=== PATIENT | male | born 1965 | race Caucasian/White ===

== ENCOUNTER 2017-07-25 15:07 | Inpatient (IN) | payer OTHER ==
[2017-07-25] MEDS ORDERED: NS 1,000 ML IV ONE (15:13)
--- NOTE | 2017-07-25 15:13 | EDPHY ---
H & P Time Seen by Provider: 07/25/17 15:13 HPI/ROS: CHIEF COMPLAINT: Intractable vomiting, constipation and increasing pain since spinal surgery HISTORY OF PRESENT ILLNESS: The patient presents to the ED with intractable vomiting, constipation increasing pain since braga L3 spinal surgery performed as an outpatient on Saturday. The patient denies any acute numbness or weakness in his legs. The patient does report 8/10 pain. The patient reports multiple episodes of vomiting and associated constipation. He has been using Valium as well as oral narcotics for management of his symptoms. The patient denies significant past medical history aside from hypertension. Past surgical history is significant only for cholecystectomy. REVIEW OF SYSTEMS: A comprehensive 10 point review of systems is otherwise negative aside from elements mentioned in the history of present illness. Source: Patient Exam Limitations: No limitations - Medical/Surgical History PMH: Past medical history: Hypertension - Family History Significant Family History: No pertinent family hx - Social History Smoking Status: Never smoked - Physical Exam Exam: General Appearance: Alert, mild discomfort secondary to pain Eyes: Pupils equal and round no pallor or injection ENT, Mouth: Mucous membranes moist Respiratory: There are no retractions, lungs are clear to auscultation Cardiovascular: Regular rate and rhythm Gastrointestinal: Abdomen is soft and nontender, no masses, bowel sounds normal Neurological: Alert and oriented x4, 5/5 strength noted bilateral extremities Skin: Incisional dressing is dry, minimal erythematous changes which appear to be consistent with a normal postsurgical state Musculoskeletal: Neck is supple nontender Extremities: symmetrical, full range of motion Constitutional: Initial Vital Signs Temperature (C) 37.5 C 07/25/17 15:11 Heart Rate 88 07/25/17 15:11 Respiratory Rate 18 07/25/17 15:11 Blood Pressure 128/86 H 07/25/17 15:11 O2 Sat (%) 92 07/25/17 15:11 O2 Delivery Mode Room Air Allergies/Adverse Reactions: Penicillins Allergy (Verified 07/25/17 15:17) Home Medications: Medication Instructions Recorded Cephalexin [Keflex (*)] 500 mg PO Q6H 07/25/17 Diazepam [Valium 5 MG (*)] 5 mg PO Q8 PRN 07/25/17 Methocarbamol [Robaxin 750 mg (*)] 750 mg PO QID PRN 07/25/17 Olmesartan Medoxomil [Benicar 20 20 mg PO DAILY 10/05/17 mg (*)] morphINE SR [Ms Contin/Oramorph 15 30 mg PO BID 07/25/17 mg (*)] oxyCODONE IR [Oxycodone Ir (*)] 5 - 10 mg PO Q4 PRN 07/25/17 Medical Decision Making ED Course/Re-evaluation: The patient presents to the ED secondary to intractable nausea, vomiting, pain and dehydration in the setting of recent outpatient spine surgery. The patient had an IV established. He received a L of normal saline. He received IV Zofran. He received IV narcotic medication. Consultation was made with his regular neurosurgeon who has requested the patient be admitted to the hospital for symptomatic treatment. The patient will be admitted under the care of Dr. Srinivasa Rivas. The patient was seen by the neurosurgical physician marketing assistant retail division in the emergency department prior to his transfer to the floor. Differential Diagnosis: Differential diagnosis considered includes dehydration, metabolic abnormality, postoperative hematoma - Data Points Laboratory Results: Laboratory Results 07/25/17 15:45 07/25/17 15:45 07/25/17 07/25/17 15:45 15:45 WBC 13.73 10^3/uL H 10^3/uL (3.80-9.50) RBC 4.64 10^6/uL 10^6/uL (4.40-6.38) Hgb 13.9 g/dL g/dL (13.7-17.5) Hct 40.6 % % (40.0-51.0) MCV 87.5 fL fL (81.5-99.8) MCH 30.0 pg pg (27.9-34.1) MCHC 34.2 g/dL g/dL (32.4-36.7) RDW 13.3 % % (11.5-15.2) Plt Count 208 10^3/uL 10^3/uL (150-400) MPV 9.0 fL fL (8.7-11.7) Neut % (Auto) 74.9 % H % (39.3-74.2) Lymph % (Auto) 13.3 % L % (15.0-45.0) [place] % (Auto) 9.0 % % (4.5-13.0) Eos % (Auto) 1.2 % % (0.6-7.6) Baso % (Auto) 0.4 % % (0.3-1.7) Nucleat RBC Rel Count 0.2 % % (0.0-0.2) Absolute Neuts (auto) 10.28 10^3/uL H 10^3/uL (1.70-6.50) Absolute Lymphs (auto) 1.82 10^3/uL 10^3/uL (1.00-3.00) Absolute Monos (auto) 1.23 10^3/uL H 10^3/uL (0.30-0.80) Absolute Eos (auto) 0.17 10^3/uL 10^3/uL (0.03-0.40) Absolute Basos (auto) 0.06 10^3/uL 10^3/uL (0.02-0.10) Absolute Nucleated RBC 0.03 10^3/uL H 10^3/uL (0-0.01) Immature Gran % 1.2 % H % (0.0-1.1) Immature Gran # 0.17 10^3/uL H 10^3/uL (0.00-0.10) Sodium 137 mEq/L mEq/L (134-144) Potassium 4.5 mEq/L mEq/L (3.5-5.2) Chloride 98 mEq/L mEq/L (97-110) Carbon Dioxide 28 mEq/l mEq/l (22-31) Anion Gap 11 mEq/L mEq/L (8-16) BUN 15 mg/dL mg/dL (7-23) Creatinine 1.0 mg/dL mg/dL (0.7-1.3) Estimated GFR > 60 Glucose 130 mg/dL H mg/dL (70-100) Calcium 9.4 mg/dL mg/dL (8.5-10.4) Medications Given: Potassium Chloride/Sodium Chloride (Ns W/ 20 Kcl/L) 1,000 mls @ 100 mls/hr IV CONT MCKENZIE Stop: 01/21/18 16:29 Last Admin: 07/25/17 18:11 Dose: 1,000 mls Ondansetron HCl (Zofran) 4 mg IVP Q4HRS PRN PRN Reason: Nausea/Vomiting, Can't Take PO Stop: 04/03/18 16:26 Last Admin: 07/25/17 16:45 Dose: 4 mg Discontinued Medications Sodium Chloride (Ns) 1,000 mls @ 0 mls/hr IV EDNOW ONE; Wide Open PRN Reason: Protocol Stop: 07/25/17 15:14 Last Admin: 07/25/17 15:49 Dose: 1,000 mls Departure - Departure Disposition: [facility] In[facility] Acute Clinical Impression: Postoperative pain, Dehydration Condition: Fair
[2017-07-25 15:59] LABS: % IMMATURE GRANULYOCYTES 1.2 % (0.0-1.1); ABSOLUTE IMMATURE GRANULOCYTES 0.17 10^3/uL (0.00-0.10); ABSOLUTE NRBC COUNT 0.03 10^3/uL (0-0.01); ADD DIFF? NO; ADD MORPH? NO; ADD SCAN? NO; ATYPICAL LYMPHOCYTE FLAG 0 (0-99); FRAGMENT RBC FLAG 0 (0-99); HEMATOCRIT 40.6 % (40.0-51.0); HEMOGLOBIN 13.9 g/dL (13.7-17.5); LEFT SHIFT FLG 10 (0-99); LIPEMIA HEMOLYSIS FLAG 90 (0-99); MEAN CELL HEMOGLOBIN CONCENTR. 34.2 g/dL (32.4-36.7); MEAN CELL VOLUME 87.5 fL (81.5-99.8); NRBC-AUTO% 0.2 % (0.0-0.2); PLATELET CLUMPS FLAG 0 (0-99); PLATELET COUNT 208 10^3/uL (150-400); RED BLOOD CELL COUNT 4.64 10^6/uL (4.40-6.38); RED CELL DISTRIBUTION WIDTH 13.3 % (11.5-15.2)
[2017-07-25 16:09] LABS: ANION GAP 11 mEq/L (8-16); CALCIUM 9.4 mg/dL (8.5-10.4); CARBON DIOXIDE 28 mEq/l (22-31); CHLORIDE 98 mEq/L (97-110); GLOMERULAR FILTRATION RATE > 60; GLUCOSE 130 mg/dL (70-100); POTASSIUM 4.5 mEq/L (3.5-5.2); SODIUM 137 mEq/L (134-144)
[2017-07-25] MEDS ORDERED: ACETAMINOPHEN 325 MG TAB PO PRN (16:27)
[2017-07-25] MEDS ORDERED: ONDANSETRON DISINTEGRATING 4 MG TAB PO PRN (16:27)
[2017-07-25] MEDS ORDERED: NS W/ 20 KCl/L 1,000 ML IV SCH (16:30)
[2017-07-25] MEDS ORDERED: METHOCARBAMOL 750 MG TAB PO PRN (16:31)
[2017-07-25] MEDS: ONDANSETRON 4 MG/2 ML VIAL IVP PRN (16:45)
--- NOTE | 2017-07-25 19:02 | GHP ---
[f rep st] PREOP HISTORY AND PHYSICAL DATE OF ADMISSION: 07/25/2017 CHIEF COMPLAINT: Nausea, vomiting. HISTORY OF PRESENT ILLNESS: The patient is a 51-year-old male, who on July 22, 2017, had an L4-5 t ransforaminal lumbar interbody fusion at the [facility]. He did have an inci dental durotomy during that procedure, but was discharged home on postoperative day #1. While at [facility], over the last 36 hours, he has developed nausea and vomiting. His states that he has only ur inated once yesterday and barely anything today. He has also been constipated postoperatively. He h as not had any fevers, but he did have some chills. He denies any weakness or paresthesias. PAST MEDICAL HISTORY: Hypertension. CURRENT MEDICATIONS: Benicar. ALLERGIES: Penicillin. FAMILY HISTORY: Patient has no family history of cancers or spinal problems. SOCIAL HISTORY: Patient is and is employed. He drinks alcohol socially, but denies smoking or drug use. REVIEW OF SYSTEMS: Negative. PHYSICAL EXAM: GENERAL APPEARANCE: Patient is a 51-year-old male lying in bed, in a mild amount of distress. HEAD, EYES, EARS, NOSE, AND THROAT: Negative to drainage. EXTREMITIES: [place], warm, and dry. NEUROLOGICAL: Patient is awake, alert, oriented x4. Pupils are equal, round, reactive to ligh t. Extraocular motions are intact. There is no evidence of facial droop. Tongue and uvula are midl ine. Spinal accessory muscles are intact. His motor strength is 5 out of 5 in all muscle groups in the arms and legs. Sensation is grossly intact to light touch in his arms and legs. Deep tendon ref lexes are 1 out of 4 throughout. His incision is clean, dry, and intact. SEROLOGICAL STUDIES: A CBC from 07/25/2017, has a white blood cell count of 13.7, hemoglobin 13.9, p latelet count 2 8. Basic metabolic panel is sodium 139, potassium 4.5, chloride 98, CO2 28, BUN 15, creatinine 1.1. The random glucose is 138. His T-max is 37.7. IMPRESSION: This is a 51-year-old male, status post an L4-5 transforaminal lumbar interbody fusion, who was admitted with postoperative nausea, vomiting, dehydration. PLAN: All the above discussed in detail with the patient and his . The patient was seen and exa mined by Dr. Héctor Rivas. At this point, he will be admitted to the hospital for observation , with overnight IV fluids and hydration. He will be placed on a bowel protocol, as well. He will h ave SCDs, TEDs, and Lovenox for DVT prophylaxis. Will evaluate his progress to make further recommen dations after rehydration. /[id number]/MODL
[2017-07-25] MEDS: morphINE SR 15 MG TAB PO SCH (20:41)
[2017-07-25] MEDS ORDERED: CEPHALEXIN 500 MG CAP PO SCH (21:00)
[2017-07-25] MEDS: PROMETHAZINE HCL 25 MG/ML INJ IVP PRN (21:19)
[2017-07-25] MEDS ORDERED: PROPOFOL 200 MG/20 ML VIAL ONE (21:28)
[2017-07-25] MEDS ORDERED: fentaNYL 100 MCG/2 ML INJ ONE (21:29)
[2017-07-25] MEDS ORDERED: LIDOCAINE 2% 5 ML SDV ONE (21:30)
[2017-07-25] MEDS ORDERED: ROCURONIUM 50 MG/5 ML VIAL ONE (21:30)
[2017-07-25] MEDS ORDERED: BUPIVACAINE 0.25% 30 ML SDV ONE ×2 (21:35→21:36)
[2017-07-25] MEDS ORDERED: CHLORHEXIDINE GLUC HIBICLENS 118 ML BTL TP ONE (21:36)
[2017-07-25] MEDS ORDERED: THROMBIN (BOVINE) 5,000 UNIT VIAL TP ONE (21:36)
[2017-07-25] MEDS ORDERED: AVITENE POWDER 1 GM JAR TP ONE (21:37)
--- NOTE | 2017-07-25 21:42 | PDANEPAE ---
ANE History of Present Illness 51 year old male w/ PMHx of HTN & obesity s/p lumbar TLIF earlier this week presents with nausea, vomiting and dehydration. Plan for dural repair. ANE Past Medical History - Cardiovascular History Hx Hypertension: Yes Hx Arrhythmias: No Hx Chest Pain: No Hx Coronary Artery / Peripheral Vascular Disease: No Hx CHF / Valvular Disease: No Hx Palpitations: No - Pulmonary History Hx COPD: No Hx Asthma/Reactive Airway Disease: No Hx Recent Upper Respiratory Infection: No Hx Oxygen in Use at Home: No Hx Sleep Apnea: No Sleep Apnea Screening Result - Last Documented: Positive - Endocrine History Hx Diabetes: No Hypothyroid: No Hyperthyroid: No Obesity: yes, mild - Renal History Hx Renal Disorders: No - Liver History Hx Hepatic Disorders: No - Neurological & Psychiatric Hx Hx Neurological and Psychiatric Disorders: No - Cancer History Hx Cancer: No - Congenital Disorder History Hx Congenital Disorders: No - GI History GERD: mild Hx Gastrointestinal Disorders: No - Chronic Pain History Chronic Pain: Yes - Surgical History Prior Surgeries: Lumbar TLIF on 07/22/2017 ANE Review of Systems Review of Systems: - Exercise capacity Exercise capacity: >=4 METS ANE Patient History - Allergies Allergies/Adverse Reactions: Penicillins Allergy (Verified 07/25/17 15:17) - Home Medications Home medications: home medication list seen and reviewed Home Medications: Cephalexin [Keflex (*)] 500 mg PO Q6H 07/25/17 [Last Taken 07/25/17 07:00] Diazepam [Valium 5 MG (*)] 5 mg PO Q8 PRN 07/25/17 [Last Taken 07/25/17 05:30] Methocarbamol [Robaxin 750 mg (*)] 750 mg PO QID PRN 07/25/17 [Last Taken ] Olmesartan Medoxomil [Benicar 20 mg (*)] 20 mg PO DAILY 07/25/17 [Last Taken 03/06] morphINE SR [Ms Contin/Oramorph 15 mg (*)] 30 mg PO BID 07/25/17 [Last Taken 03/06 05:30] oxyCODONE IR [Oxycodone Ir (*)] 5 - 10 mg PO Q4 PRN 07/25/17 [Last Taken 07:00] - NPO status NPO Status: no food or drink >8 hours NPO Since - Liquids (Date): 07/24/17 NPO Since - Liquids (Time): 00:00 NPO Since - Solids (Date): 07/24/17 NPO Since - Solids (Time): 00:00 - Anes Hx Anes Hx: no prior problems - Smoking Hx Smoking Status: Never smoked Marijuana use: No - Alcohol Use Alcohol Use: Occasionally - Family Anes Hx Family Anes Hx: neg - N/A ANE Labs/Vital Signs - Labs Result Diagrams: 07/25/17 15:45 07/25/17 15:45 - Vital Signs Vital Signs: reviewed preoperatively; see RN documention for details Blood Pressure: 154/89 Heart Rate: 85 Respiratory Rate: 18 O2 Sat (%): 96 Height: 177.8 cm Weight: 113.398 kg ANE Physical Exam - Airway Neck exam: FROM Mallampati Score: Class 2 Mouth exam: normal dental/mouth exam - Pulmonary Pulmonary: no respiratory distress - Cardiovascular Cardiovascular: regular rate and rhythym - ASA Status ASA Status: II ANE Anesthesia Plan Anesthesia Plan: general endotracheal anesthesia Total IV Anesthesia: No
[2017-07-25] MEDS ORDERED: BACITRACIN 50,000 UNITS/10 ML SYR IRR ONE (21:46)
[2017-07-25] MEDS ORDERED: CEFAZOLIN 2 GM/DEXTROSE/100 ML BAG IV ONE (22:10)
[2017-07-25] MEDS: ceFAZolin 2 GM/DEXTROSE 100 ML IV ONE (22:25)
[2017-07-25] MEDS ORDERED: DEXAMETHASONE 4 MG/ML VIAL ONE (23:00)
[2017-07-25] MEDS ORDERED: ONDANSETRON 4 MG/2 ML VIAL ONE (23:16)
[2017-07-25] MEDS ORDERED: HYDROmorphONE/DILAUDID 1 MG/ML INJ IVP PRN (23:38)
[2017-07-25] MEDS ORDERED: NALOXONE HCL 0.4 MG/ML INJ IVP PRN (23:38)
[2017-07-25] MEDS ORDERED: fentaNYL 100 MCG/2 ML INJ IVP PRN (23:38)
[2017-07-25] MEDS ORDERED: LR 500 ML IV PRN (23:38)
[2017-07-25] MEDS ORDERED: ONDANSETRON 4 MG/2 ML VIAL IVP PRN (23:38)
[2017-07-25] MEDS ORDERED: BACITRACIN ZINC 14.2 GM OINTTUBE TP ONE (23:54)
--- NOTE | 2017-07-26 00:23 | GPROG ---
[f rep st] PROGRESS NOTE The patient was seen and examined. His vital signs are stable. He is moving his lower extremities w ell. The dressing is clean and dry. The lumbar drain is draining well. The patient will be transfe rred to the intensive care unit for close observation and drainage of CSF at 10-20 cc/hour. /[id number]/MODL
--- NOTE | 2017-07-26 00:33 | GOP ---
[f rep st] OPERATIVE REPORT DATE OF OPERATION: 07/25/2017 SURGEON: Srinivasa Rivas MD NEUROSURGEON: Srinivasa Rivas MD. ROSS LIFT OPERATOR: None. ANESTHESIA: General endotracheal. PREOPERATIVE DIAGNOSIS: Possible lumbar cerebral spinal fluid leak. POSTOPERATIVE DIAGNOSIS: Possible lumbar cerebral spinal fluid leak. PROCEDURE PERFORMED: 1. Exploration of lumbar wound for extension of laminectomy defect and evaluation of cerebrospinal f luid leak. 2. Placement of lumbar drain for therapeutic drainage of cerebral spinal fluid. FINDINGS: ESTIMATED BLOOD LOSS: Trace. INDICATIONS: The patient is a 51-year-old man who recently underwent a lumbar decompression and fusi on complicated by a CSF leak, who woke up earlier this morning with nausea and vomiting when he sat u p which has gone on all day and it is positional and he presents now for exploration and placement of a lumbar drain. DESCRIPTION OF PROCEDURE: After informed consent was obtained, the patient was taken to the operatin g room and placed in the prone position on the Jaime table. The thoracolumbosacral areas were prep ped and draped in a sterile fashion and a Tuohy needle was placed just immediately above the prior in cision and down to the spine. This was buried to the hub and in multiple angles, and no CSF flow was identified. The needle was then removed and the prior incision opened and carried down to the dural layer. After incising the prior sutures in the fascia and subcutaneous tissues, a Versa Trac retrac tor was placed and the prior dural repair was identified and noted to not be leaking. I felt that ba sed on the patient's symptoms he very likely leaked when he sat up, but did not leak when he was flat such as in the surgical position. Therefore, I reinforced the patch with Gelfoam soaked in blood an d left the DuraGen in place. The fascia was then closed using interrupted Vicryl sutures. The incis ion was extended very slightly rostrally and the Tuohy needle was placed through the fascia into the approximately L2-3 interspace and good CSF flow was obtained. The catheter was then threaded through the needle and out the skin through a separate area and connected to a Huynh drainage system where good flow was observed. The wound was then closed in a layered fashion using interrupted Vicryl sutu res followed by nylon on the skin. COMPLICATIONS: None. DISPOSITION: The patient is currently in the process being repositioned for extubation. /[id number]/MODL
--- NOTE | 2017-07-26 00:53 | POSTANESTH ---
Post Anesthetic Evaluation Cardiovascular Status: Normal, Stable, Similar to Pre-Op Cond Respiratory Status: Normal, Stable, Similar to Pre-op Cond. Level of Consciousness/Mental Status: Can Participate in Eval, Alert and Oriented Pain Control: Adequate, Prn Tx Ordered Nausea/Vomiting Control: Adequate, Prn Tx Ordered Complications Possibly Related to Anesthesia: None Noted
[2017-07-26] MEDS: ceFAZolin 2 GM/DEXTROSE 100 ML IV ONE (00:59)
[2017-07-26] MEDS: POTASSIUM Cl (KCl) 20 MEQ in D5W NS 1,000 ML IV SCH ×2 (02:05→22:31)
[2017-07-26] MEDS: oxyCODONE IR 5 MG TAB PO PRN (02:24)
[2017-07-26] MEDS: DIAZEPAM 5 MG TAB PO PRN ×2 (02:24→22:31)
[2017-07-26] MEDS ORDERED: POTASSIUM Cl (KCl) 20 MEQ in D5W NS 1,000 ML IV SCH (06:30)
--- NOTE | 2017-07-26 07:34 | SOAPPROG ---
SOAP Progress Note Assessment/Plan: Assessment: 51 yo M POD #1 exploration and repair of csf leak with lumbar drian placement, L4/5 TLIF on 07/22/17 Plan: neuro: stable, keep lumbar drain open to drain with 10-20 ml per hour hob flat with bedrest scd/reina/lovenox for dvt prophylaxis an ancef until lumbar drain removed please call with neuro changes discussed with Dr Hunt 07/26/17 07:32 Subjective: mild headache this am, " I feel much better today." No N/V. no leg pain. Objective: Vital Signs Temp Pulse Resp BP Pulse Ox 36.8 C 75 17 132/72 H 95 07/26/17 05:00 07/26/17 06:00 07/26/17 06:00 07/26/17 06:00 07/26/17 06:00 07/25/17 07/26/17 07/27/17 05:59 05:59 05:59 Intake Total 795 200 Output Total 1234 18 Balance -439 182 AAOx4, +FC PERRL, no facial droop 5/5 + light touch C/D/I ICD10 Worksheet Patient Problems: Problems Problem Status Onset Dehydration Acute Postoperative pain Acute
[2017-07-26] MEDS: POLYETHYLENE GLYCOL 3350 17 GM PKT PO SCH (08:11)
[2017-07-26] MEDS: morphINE SR 15 MG TAB PO SCH ×2 (08:11→20:28)
[2017-07-26] MEDS: ENOXAPARIN 40 MG/0.4 ML SYR SC SCH (08:14)
--- NOTE | 2017-07-26 10:44 | GCON ---
[f rep st] CONSULTATION INFORMATION RECEPTIONIST CONSULTATION HISTORY OF PRESENT ILLNESS: The patient is postop L4-L5 transforaminal lumbar interbody fusion. The patient is a 51-year-old white male with a past medical history of hypertension. On July 22, he underwent a L4-L5 trans[facility]aminal lumbar [facility] fusion [facility] . He presented with increasing nausea and vomiting, as well as constipation. In discussion with e patient, he states he feels somewhat better. He is having to lie flat and is somewhat uncomfortabl e. He denies any chest pain, pleuritic-type chest pain or angina equivalent. No fever or night swea ts. Currently, he is resting comfortably. PAST MEDICAL HISTORY: Significant for hypertension. ALLERGIES: Penicillin. SOCIAL HISTORY: No history of tobacco use. Infrequent alcohol use. He is and employed. He is originally from [place]. PHYSICAL EXAM: VITAL SIGNS: Blood pressure is 144/80, pulse 73, respiration 18, temperature 36.7, o xygen saturation 96% on 2 L. GENERAL: He is a mildly overweight, but very pleasant, 51-year-old, wh ite male, who is resting comfortably, in no acute distress. HEENT: Eyes are PERRLA, EOMI. Throat s hows no erythema or tonsillar hypertrophy. NECK: Supple. No cervical adenopathy. HEART: Regular rate and rhythm without murmurs, rubs, gallops. LUNGS: Clear to auscultation. No wheeze or rhonchi . ABDOMEN: Soft, nontender. Bowel sounds are present in all 4 quadrants. EXTREMITIES: No clubbin g, cyanosis, or edema. LABORATORIES: White count 13.7, hemoglobin 13, hematocrit 40, platelet count 208. Sodium 137, potas sium 4.5, chloride 98, CO2 28, BUN 15, creatinine 1, glucose is 130. IMPRESSION: 1. Status post transforaminal lumbar interbody fusion. 2. Immediately postop after receiving an exploration repair of CSF leak with lumbar drain. 3. Hypertension. RECOMMENDATIONS: 1. Adequate pain control. 2. Deep vein thrombosis and pulmonary embolus prophylaxis. 3. Stress ulcer prophylaxis. 4. The patient to remain flat and lumbar drain open. /[id number]/MODL
--- NOTE | 2017-07-26 10:59 | ASMTCMCOM ---
CM Note CM Note Notes: Chart reviewed. Rounds on patient done with staff. Lumbar drain in place. Needs TBD. Date Signed: 07/26/2017 10:58 AM Electronically Signed By:Karoline Talavera RN
[2017-07-26] MEDS: OLMESARTAN MEDOXOMIL 20 MG TAB PO SCH (12:22)
[2017-07-27] MEDS: POTASSIUM Cl (KCl) 20 MEQ in D5W NS 1,000 ML IV SCH ×2 (08:03→18:51)
--- NOTE | 2017-07-27 08:04 | SOAPPROG ---
SOAP Progress Note Assessment/Plan: Assessment: 51 yo male who underwent an L4/5 TLIF on 07/22. Readmitted with CSF leak, dehydration. taken to OR on 07/26 for repair of CSF leak and placment of Lumbar Drain Doing well Plan: Continue Lumbar drain titrating 10-20 ml/hr HOB flat x 5 days (until 07/31) He is on Lovenox and Ancef Discussed with Dr. Mcclure 07/27/17 08:01 Subjective: lying in bed, HOB flat. He is tolerating LD ok. Pain well controlled. Denies numbness or tingling Objective: Vital Signs Temp Pulse Resp BP Pulse Ox 36.9 C 61 16 112/68 92 07/27/17 00:00 07/27/17 07:00 07/27/17 07:00 07/27/17 07:00 07/27/17 07:00 07/26/17 07/27/17 07/28/17 05:59 05:59 05:59 Intake Total 795 2203 5 Output Total 1234 1870 27 Balance -071 190 7005 Neuro: PASCUAL, sens +LT 5/5 strength throughout LD functioning well slight shadowing of yellowish CSF at LD dressing site ICD10 Worksheet Patient Problems: Problems Problem Status Onset Dehydration Acute Postoperative pain Acute
[2017-07-27] MEDS: DIAZEPAM 5 MG TAB PO PRN (08:34)
[2017-07-27] MEDS: POLYETHYLENE GLYCOL 3350 17 GM PKT PO SCH (08:35)
[2017-07-27] MEDS: ENOXAPARIN 40 MG/0.4 ML SYR SC SCH (08:35)
[2017-07-27] MEDS: morphINE SR 15 MG TAB PO SCH ×2 (08:35→21:08)
[2017-07-27] MEDS: OLMESARTAN MEDOXOMIL 20 MG TAB PO SCH (09:01)
--- NOTE | 2017-07-27 11:58 | PDINTPN ---
Grocery Clerk Progress Note Assessment/Plan: Assessment: * Status post L4-L5 transforaminal lumbar interbody fusion * The dural tear * Status post lumbar drain * Pain well controlled Plan: Continue present care Patient to lie flat for several more days Subjective: Resting comfortably. Pain is controlled. No current complaints. Objective: Vital Signs Temp Pulse Resp BP Pulse Ox 36.6 C 57 L 16 126/67 H 93 07/27/17 09:00 07/27/17 11:00 07/27/17 11:00 07/27/17 11:00 07/27/17 11:00 07/26/17 07/27/17 07/28/17 05:59 05:59 05:59 Intake Total 795 2203 5 Output Total 1234 1870 93 Balance -424 693 0980 Physical Exam - Physical Exam General Appearance: WD/WN, alert, no apparent distress EENT: PERRL/EOMI Neck: non-tender, full range of motion, supple, normal inspection Respiratory: chest non-tender, lungs clear, normal breath sounds Cardiac/Chest: normal peripheral pulses, regular rate, rhythm Peripheral Pulses: 2+: carotid (R), carotid (L), femoral (R), femoral (L), dorsalis-pedis (R), dorsalis-pedis (L) Abdomen: normal bowel sounds, non-tender, soft Male Genitalia: deferred Rectal: deferred Skin: normal color, warm/dry Extremities: normal range of motion, non-tender, normal inspection, normal capillary refill Neuro/Psych: no motor/sensory deficits, alert, normal mood/affect, oriented x 3 ICD10 Worksheet Patient Problems: Problems Problem Status Onset Dehydration Acute Postoperative pain Acute
[2017-07-27] MEDS: ONDANSETRON 4 MG/2 ML VIAL IVP PRN (13:03)
[2017-07-27] MEDS: oxyCODONE IR 5 MG TAB PO PRN (13:07)
[2017-07-27] MEDS: diphenhydrAMINE 25 MG CAP PO PRN (13:07)
[2017-07-28] MEDS: POLYETHYLENE GLYCOL 3350 17 GM PKT PO SCH (09:04)
[2017-07-28] MEDS: ENOXAPARIN 40 MG/0.4 ML SYR SC SCH (09:04)
[2017-07-28] MEDS: morphINE SR 15 MG TAB PO SCH ×2 (09:04→21:04)
[2017-07-28] MEDS: OLMESARTAN MEDOXOMIL 20 MG TAB PO SCH (09:04)
--- NOTE | 2017-07-28 09:37 | PDINTPN ---
Drilling Manager Progress Note Assessment/Plan: Assessment: * Status post L4-L5 transforaminal lumbar interbody fusion * The dural tear * Status post lumbar drain * Pain well controlled Plan: Continue present care Patient to lie flat for several more days Continue minimal sedation Subjective: Resting comfortably. No complaints. Objective: Vital Signs Temp Pulse Resp BP Pulse Ox 36.8 C 73 13 153/85 H 90 L 07/28/17 08:00 07/28/17 08:00 07/28/17 08:00 07/28/17 08:00 07/28/17 08:00 07/27/17 07/28/17 07/29/17 05:59 05:59 05:59 Intake Total 2203 3866 Output Total 1876 9980 36 Balance 333 -694 -36 Physical Exam - Physical Exam General Appearance: alert, no apparent distress EENT: PERRL/EOMI, normal ENT inspection, pharynx normal, TMs normal Neck: non-tender, full range of motion, supple, normal inspection Respiratory: chest non-tender, lungs clear Cardiac/Chest: normal peripheral pulses, regular rate, rhythm Peripheral Pulses: 2+: carotid (R), carotid (L), femoral (R), femoral (L), dorsalis-pedis (R), dorsalis-pedis (L) Abdomen: normal bowel sounds, non-tender, soft Male Genitalia: deferred Rectal: deferred Skin: normal color, warm/dry Extremities: normal range of motion, non-tender, normal inspection, normal capillary refill Neuro/Psych: no motor/sensory deficits, alert, normal mood/affect, oriented x 3 ICD10 Worksheet Patient Problems: Problems Problem Status Onset Dehydration Acute Postoperative pain Acute
--- NOTE | 2017-07-28 10:56 | SOAPPROG ---
SOAP Progress Note Assessment/Plan: Assessment: 51 yo male who underwent an L4/5 TLIF on 07/22. Readmitted with CSF leak, dehydration. taken to OR on 07/26 for repair of CSF leak and placment of Lumbar Drain Doing well Plan: Continue Lumbar drain titrating 10-20 ml/hr HOB flat x 5 days (until 07/31) He is on Lovenox and Ancef Discussed with Dr. Mcclure will get cbc and chem today. 07/27/17 08:01 07/28/17 10:55 Objective: Vital Signs Temp Pulse Resp BP Pulse Ox 36.8 C 61 10 L 138/80 H 93 07/28/17 08:00 07/28/17 09:00 07/28/17 09:00 07/28/17 09:00 07/28/17 09:00 07/27/17 07/28/17 07/29/17 05:59 05:59 05:59 Intake Total 2203 3866 Output Total 1870 4560 91 Balance 333 -694 -91 ICD10 Worksheet Patient Problems: Problems Problem Status Onset Dehydration Acute Postoperative pain Acute
[2017-07-28 11:30] LABS: HEMATOCRIT 24.2 % (40.0-51.0); HEMOGLOBIN 8.1 g/dL (13.7-17.5); MEAN CELL HEMOGLOBIN 29.7 pg (27.9-34.1); MEAN CELL HEMOGLOBIN CONCENTR. 33.5 g/dL (32.4-36.7); MEAN CELL VOLUME 88.6 fL (81.5-99.8); RED BLOOD CELL COUNT 2.73 10^6/uL (4.40-6.38); RED CELL DISTRIBUTION WIDTH 13.5 % (11.5-15.2)
[2017-07-28 11:58] LABS: ANION GAP 11 mEq/L (8-16); CALCIUM 8.8 mg/dL (8.5-10.4); CARBON DIOXIDE 24 mEq/l (22-31); CHLORIDE 104 mEq/L (97-110); CREATININE 0.8 mg/dL (0.7-1.3); GLOMERULAR FILTRATION RATE > 60; GLUCOSE 92 mg/dL (70-100); POTASSIUM 3.8 mEq/L (3.5-5.2); SODIUM 139 mEq/L (134-144)
[2017-07-28] MEDS: POTASSIUM Cl (KCl) 20 MEQ in D5W NS 1,000 ML IV SCH (14:28)
[2017-07-28] MEDS: diphenhydrAMINE 25 MG CAP PO PRN ×2 (17:55→21:04)
--- NOTE | 2017-07-29 08:08 | SOAPPROG ---
SOAP Progress Note Assessment/Plan: Assessment: 51 yo M POD #4 exploration and repair of csf leak with lumbar drian placement, L4/5 TLIF on 07/22/17 Plan: neuro: stable, keep lumbar drain open to drain with 10-20 ml per hour hob flat with bedrest scd/reina/lovenox for dvt prophylaxis changed dressing this am an ancef until lumbar drain removed please call with neuro changes discussed with Dr Hunt 07/26/17 07:32 07/29/17 08:07 Subjective: no headaches, minimal back pain, no leg pain or weakness. Objective: Vital Signs Temp Pulse Resp BP Pulse Ox 37.3 C 72 18 118/65 89 L 07/29/17 04:00 07/29/17 06:00 07/29/17 06:00 07/29/17 06:00 07/29/17 04:00 Laboratory Results 07/28/17 11:20 07/28/17 11:20 07/28/17 07/29/17 07/30/17 05:59 05:59 05:59 Intake Total 3866 2430 Output Total 2355 6501 Balance -694 -1947 AAOx4, +FC PERRL, EOMI, no facial droop 5/5 + light touch C/D/I ICD10 Worksheet Patient Problems: Problems Problem Status Onset Dehydration Acute Postoperative pain Acute
[2017-07-29] MEDS: POTASSIUM Cl (KCl) 20 MEQ in D5W NS 1,000 ML IV SCH (08:24)
[2017-07-29] MEDS: POLYETHYLENE GLYCOL 3350 17 GM PKT PO SCH ×3 (08:24→23:14)
[2017-07-29] MEDS: morphINE SR 15 MG TAB PO SCH ×2 (08:24→21:32)
[2017-07-29] MEDS: OLMESARTAN MEDOXOMIL 20 MG TAB PO SCH (08:24)
[2017-07-29] MEDS: ENOXAPARIN 40 MG/0.4 ML SYR SC SCH (08:25)
[2017-07-29] MEDS ORDERED: MAGNESIUM HYDROXIDE 30 ML UDCUP PO PRN (13:24)
[2017-07-29] MEDS ORDERED: BISACODYL 10 MG SUPP PR PRN (13:24)
--- NOTE | 2017-07-29 15:55 | ASMTCMCOM ---
CM Note CM Note Notes: Patient in ICU, has a CSF leak after a recent L3-4 fusion. needs to lay flat until Saturday, then therapies will be ordered for discharge needs. Date Signed: 07/29/2017 03:55 PM Electronically Signed By:Tracy Alvarez LCSW
--- NOTE | 2017-07-29 17:07 | PDINTPN ---
[employer] Progress Note Assessment/Plan: Assessment: * Status post L4-L5 transforaminal lumbar interbody fusion * Dural tear * Status post lumbar drain * Vomiting x1 * Constipation: No BM for 8 days. Not feeling constipated. Poor PO intake. On MS Contin. Plan: Add bowel stimulant, fiber. Patient to lie flat until Saturday Continue MS Contin Plan: 07/29/17 17:13 Subjective: Had vomiting after taking MOM. Not feeling nauseated otherwise. No BM for 8 days , but not feeling constipated. Denies pain. Objective: Vital Signs Temp Pulse Resp BP Pulse Ox 36.9 C 65 14 133/65 H 98 07/29/17 12:00 07/29/17 12:00 07/29/17 12:00 07/29/17 12:00 07/29/17 12:00 Laboratory Results 07/28/17 11:20 07/28/17 11:20 07/28/17 07/29/17 07/30/17 05:59 05:59 05:59 Intake Total 3866 2430 Output Total 5442 4377 359 [facility] -694 -1947 -359 Physical Exam - Physical Exam General Appearance: alert, no apparent distress EENT: normal ENT inspection Neck: normal inspection Respiratory: lungs clear, normal breath sounds Cardiac/Chest: regular rate, rhythm, No edema Abdomen: normal bowel sounds, non-tender, soft Skin: normal color, warm/dry Extremities: normal inspection Neuro/Psych: alert, normal mood/affect, oriented x 3 ICD10 Worksheet Patient Problems: Problems Problem Status Onset Dehydration Acute Postoperative pain Acute
[2017-07-29] MEDS: SENNOSIDES/DOCUSATE SODIUM TAB PO SCH (21:32)
[2017-07-29] MEDS: PSYLLIUM METAMUCIL 1 PKT PO SCH (21:33)
[2017-07-30] MEDS: ONDANSETRON 4 MG/2 ML VIAL IVP PRN (06:46)
[2017-07-30] MEDS: PROMETHAZINE HCL 25 MG/ML INJ IVP PRN (07:43)
--- NOTE | 2017-07-30 07:51 | SOAPPROG ---
SOAP Progress Note Assessment/Plan: Assessment: 51 yo male who underwent an L4/5 TLIF on 07/22. Readmitted with CSF leak, dehydration. taken to OR on 07/25 for repair of CSF leak and placment of Lumbar Drain N/V today No BM since 07/23, pt states he is passing gas and RN reports + bowel sounds Plan: Continue Lumbar drain titrating 10-20 ml/hr HOB flat x 5 days (until 08/01) He is on Lovenox and Ancef try suppository today. Discussed with Dr. Graves 07/30/17 07:50 07/31/17 07:56 Subjective: lying in bed, vomiting. Feels nauseated. Has not had BM since 07/23. Denies numbness, tingling, weakness Objective: Vital Signs Temp Pulse Resp BP Pulse Ox 36.7 C 65 18 137/69 H 91 L 07/30/17 07:44 07/30/17 07:44 07/30/17 07:44 07/30/17 07:44 07/30/17 07:44 Laboratory Results 07/28/17 11:20 07/28/17 11:20 07/29/17 07/30/17 07/31/17 05:59 05:59 05:59 Intake Total 2430 2480 Output Total 5167 3522 19 Balance -1947 -1042 -19 Neuro: PASCUAL, sens +LT Incision: CDI LD: draining 10-20 ml/hr abdomen: soft, non-tender ICD10 Worksheet Patient Problems: Problems Problem Status Onset Dehydration Acute Postoperative pain Acute
[2017-07-30] MEDS: ENOXAPARIN 40 MG/0.4 ML SYR SC SCH (08:50)
[2017-07-30] MEDS: SENNOSIDES/DOCUSATE SODIUM TAB PO SCH ×2 (08:51→20:51)
[2017-07-30] MEDS: morphINE SR 15 MG TAB PO SCH ×2 (08:51→20:51)
[2017-07-30] MEDS: OLMESARTAN MEDOXOMIL 20 MG TAB PO SCH (08:51)
[2017-07-30] MEDS: POLYETHYLENE GLYCOL 3350 17 GM PKT PO SCH ×3 (08:51→20:51)
[2017-07-30] MEDS: PSYLLIUM METAMUCIL 1 PKT PO SCH (08:52)
--- NOTE | 2017-07-30 15:45 | PDINTPN ---
[employer] Progress Note Assessment/Plan: Assessment: * Status post L4-L5 transforaminal lumbar interbody fusion * Dural tear * Status post lumbar drain * Vomiting x1 this morning. No longer has nausea. Able to eat a small amount. * Constipation: No BM for 9 days. Not feeling constipated. Poor PO intake. On MS Contin. Plan: Continue bowel stimulant, fiber. Encourage PO Patient to lie flat until tomorrow Continue MS Contin Plan: 07/30/17 15:44 Subjective: Feels OK, had a MIRANDA this morning and an episode of N/V, now resolved. No BM, doesn't feel constipated. Objective: Vital Signs Temp Pulse Resp BP Pulse Ox 36.7 C 78 12 133/72 H 92 07/30/17 14:00 07/30/17 14:00 07/30/17 14:00 07/30/17 14:00 07/30/17 14:00 Laboratory Results 07/28/17 11:20 07/28/17 11:20 07/29/17 07/30/17 07/31/17 05:59 05:59 05:59 Intake Total 2430 2480 Output Total 4377 3522 136 [facility] -1947 -1042 -136 Physical Exam - Physical Exam General Appearance: alert, no apparent distress Neck: normal inspection Respiratory: lungs clear, normal breath sounds Cardiac/Chest: regular rate, rhythm, No edema Abdomen: normal bowel sounds, non-tender, soft Skin: normal color, warm/dry Extremities: normal inspection Neuro/Psych: alert, normal mood/affect, oriented x 3 ICD10 Worksheet Patient Problems: Problems Problem Status Onset Dehydration Acute Postoperative pain Acute
[2017-07-31] MEDS: POTASSIUM Cl (KCl) 20 MEQ in D5W NS 1,000 ML IV SCH ×2 (05:37→17:03)
[2017-07-31] MEDS: morphINE SR 15 MG TAB PO SCH ×2 (08:21→21:27)
[2017-07-31] MEDS: ENOXAPARIN 40 MG/0.4 ML SYR SC SCH (08:22)
[2017-07-31] MEDS: POLYETHYLENE GLYCOL 3350 17 GM PKT PO SCH ×3 (08:22→21:25)
[2017-07-31] MEDS: PSYLLIUM METAMUCIL 1 PKT PO SCH (08:22)
[2017-07-31] MEDS: SENNOSIDES/DOCUSATE SODIUM TAB PO SCH ×2 (08:22→21:27)
--- NOTE | 2017-07-31 08:27 | SOAPPROG ---
SOAP Progress Note Assessment/Plan: Assessment: 51 yo M POD #6 exploration and repair of csf leak with lumbar drian placement, L4/5 TLIF on 07/22/17 Plan: neuro: stable, lumbar drain removed last night. Will advance activity today scd/reina/lovenox for dvt prophylaxis PT/OT please call with neuro changes seen by Dr Hunt 07/26/17 07:32 07/29/17 08:07 07/31/17 08:24 Subjective: no back pain, no leg pain, no weakness. Objective: Vital Signs Temp Pulse Resp BP Pulse Ox 36.9 C 70 15 114/69 92 07/31/17 07:54 07/31/17 07:54 07/31/17 07:54 07/31/17 07:54 07/31/17 07:54 Laboratory Results 07/28/17 11:20 07/28/17 11:20 07/30/17 07/31/17 08/01/17 05:59 05:59 05:59 Intake Total 2480 2346 Output Total 8537 3872 Balance -1042 -326 AAOx4, +FC PERRL, EOMI, no facial droop 5/5 + light touch C/D/I ICD10 Worksheet Patient Problems: Problems Problem Status Onset Dehydration Acute Postoperative pain Acute
[2017-07-31] MEDS: OLMESARTAN MEDOXOMIL 20 MG TAB PO SCH (10:45)
--- NOTE | 2017-07-31 14:22 | ASMTCMCOM ---
CM Note CM Note Notes: Patient is s/p L3-4 TLIF and CSF leak. He had been lying flat until today; today, he was able get out of bed and work with PT/OT. I spoke with patient and his about d/c planning, and they are amenable to home care if recommended. I sent referrals to a few [facility] agencies. CM will follow. Date Signed: 07/31/2017 02:22 PM Electronically Signed By:Kim Davila RN
[2017-07-31 19:30] VITALS: RESP 16
[2017-08-01] MEDS: POTASSIUM Cl (KCl) 20 MEQ in D5W NS 1,000 ML IV SCH (04:03)
--- NOTE | 2017-08-01 07:25 | SOAPPROG ---
SOAP Progress Note Assessment/Plan: Assessment: 51 yo M POD #7 exploration and repair of csf leak with lumbar drian placement, L4/5 TLIF on 07/22/17 Plan: neuro: stable, lumbar drain removed 07/30/17. continue with advanced activity scd/reina/lovenox for dvt prophylaxis PT/OT please call with neuro changes possible discharge home today seen by Dr Hunt 07/26/17 07:32 07/29/17 08:07 07/31/17 08:24 08/01/17 07:24 Subjective: back pain improving, no leg pain, no headaches. Objective: Vital Signs Temp Pulse Resp BP Pulse Ox 36.8 C 68 16 106/68 95 08/01/17 05:05 08/01/17 05:05 08/01/17 05:05 08/01/17 05:05 08/01/17 05:05 Laboratory Results 07/28/17 11:20 07/28/17 11:20 07/31/17 08/01/17 08/02/17 05:59 05:59 05:59 Intake Total 2346 100 Output Total 2672 1355 Balance -326 -1255 AAOX4, +FC PERRL, EOMI, no facial droop 5/5 + light touch C/D/I ICD10 Worksheet Patient Problems: Problems Problem Status Onset Dehydration Acute Postoperative pain Acute
[2017-08-01 07:49] VITALS: TEMP 97.5; O2SAT 93
[2017-08-01] MEDS: SENNOSIDES/DOCUSATE SODIUM TAB PO SCH (08:55)
[2017-08-01] MEDS: morphINE SR 15 MG TAB PO SCH (08:55)
[2017-08-01] MEDS: ENOXAPARIN 40 MG/0.4 ML SYR SC SCH (08:56)
[2017-08-01] MEDS: PSYLLIUM METAMUCIL 1 PKT PO SCH (08:56)
[2017-08-01] MEDS: POLYETHYLENE GLYCOL 3350 17 GM PKT PO SCH ×2 (08:56→10:03)
[2017-08-01 10:01] VITALS: BP 137/82; PULSE 63
[2017-08-01] MEDS: OLMESARTAN MEDOXOMIL 20 MG TAB PO SCH (10:01)
--- NOTE | 2017-08-01 17:12 | ASDISCHSUM ---
Discharge Information Plan Status:Home with No Needs Medically Cleared to Leave: Discharge Date:08/01/2017 02:53 PM CM D/C Disposition: ADT D/C Disposition:Home, Routine, Self-Care Projected Discharge Date:08/01/2017 11:00 AM Transportation at D/C: Discharge Delay Reason: Follow-Up Date:08/01/2017 11:00 AM Discharge Slot: Final Diagnosis: Placement Information Referral Type:*Home Health Care Services Referral ID:[id number] Provider Name: Address 1: Phone Number: Address 2: Fax Number: City: Selection Factors: State: Patient Contact Information Contact Name:TALRONALTATOTHUGERARDO Relationship: Address: Work Phone: City: [facility] Phone: [facility] Code: Email: Financial Information Financial Class:[facility] [employer] Primary Plan Desc:[facility] Primary Plan Number:[id number] Secondary Plan Desc: Secondary Plan Number: Assessment Information [facility] CM Progress Note CM Note CM Note Notes: Chart reviewed. Rounds on patient done with staff. Lumbar drain in place. Needs TBD. Date Signed: 07/26/2017 10:58 AM Electronically Signed By:Karoline Talavera RN [facility] CM Progress Note CM Note CM Note Notes: Patient in ICU, has a CSF leak after a recent L3-4 fusion. needs to lay flat until Saturday, then therapies will be ordered for discharge needs. Date Signed: 07/29/2017 03:55 PM Electronically Signed By:Tracy Alvarez LCSW [facility] CM Progress Note CM Note CM Note Notes: Patient is s/p L3-4 TLIF and CSF leak. He had been lying flat until today; today, he was able get out of bed and work with PT/OT. I spoke with patient and his about d/c planning, and they are amenable to home care if recommended. I sent referrals to a few [facility] agencies. CM will follow. Date Signed: 07/31/2017 02:22 PM Electronically Signed By:Kim Davila RN [facility] CM Progress Note CM Note CM Note Notes: Met with pt today to discuss PT recommendation for HC PT. Pt prefers not to have any HC at this time. He will discuss with Dr Hunt if he feels a need for it. [facility]. Date Signed: 08/01/2017 05:11 PM Electronically Signed By:Kaur Mcgee LCSW Intervention Information Intervention Type:*Incorrect Registration Date of Service:07/26/2017 03:55 AM Patient Type:Inpatient Staff Member:NASRA Beth Susan Hours: Discipline: Severity: Comment:
== END 2017-08-01 14:53 | disposition home or self-care (01) | DRG 30 ==
LOC: OBSVTOIN 16:31 → F3N 16:37 → F2N 07-26 00:32 → F1N 07-31 16:08
PROVIDERS: ADMIT Neurological Surgery; ATTEND Neurological Surgery
PROC: 009U00Z Drainage of Spinal Canal with Drainage Device, Open Approach (ICD-10-PCS; principal; 2017-07-26)
PROC: 00UT0JZ Supplement Spinal Meninges with Synthetic Substitute, Open Approach (ICD-10-PCS; principal; 2017-07-26)
DX: G96.0 Cerebrospinal fluid leak (principal); K59.00 Constipation, unspecified; I10 Essential (primary) hypertension; Z98.1 Arthrodesis status
CPT/HCPCS: 97116-GP; 97162-GP; 97166-GO; 97530-GP; 97535-GO; J0171; J0690; J1100; J1650; J2405; J2550; J2704; J3010